=== PATIENT | male | born 2005 | race Two or more races ===

== ENCOUNTER 2023-01-28 16:31 | Emergency (ER) | payer MEDICAID ==
[~2023-01-28] VITALS: Ht 185.4 cm; Wt 124.5 kg
[2023-01-28 16:42] VITALS: BP 155/78
== END 2023-01-28 19:57 | disposition left against medical advice (07) ==
LOC: ER 16:31
DX: M79.89 Other specified soft tissue disorders (principal); Z53.21 Procedure and treatment not carried out due to patient leaving prior to being seen by health care provider

== ENCOUNTER 2025-03-26 19:08 | Emergency (ER) | payer MEDICARE, MEDICAID ==
[~2025-03-26] VITALS: Ht 188 cm; Wt 112.3 kg
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
[2025-03-26 22:45] VITALS: BP 137/87; PULSE 101; RESP 18; TEMP 98.1; O2SAT 96
== END 2025-03-26 23:28 | disposition home or self-care (01) ==
LOC: ER 19:08
DX: S01.81XD Laceration without foreign body of other part of head, subsequent encounter (principal); E11.9 Type 2 diabetes mellitus without complications; I10 Essential (primary) hypertension; F20.9 Schizophrenia, unspecified; W22.8XXD Striking against or struck by other objects, subsequent encounter